=== PATIENT | male | born 1940 | race Caucasian/White ===

== ENCOUNTER 2020-12-14 06:04 | Emergency (ER) | payer MEDICARE, OTHER ==
--- NOTE | 2020-12-14 06:50 | EDM.PDOC ---
ED HPI GENERAL MEDICAL PROBLEM - General Chief Complaint: Genitourinary Problem Stated Complaint: BLOOD IN URINE Time Seen by Provider: 12/14/20 06:20 Source of Information: Reports: Patient, Family () History Limitations: Reports: No Limitations - History of Present Illness INITIAL COMMENTS - FREE TEXT/NARRATIVE: Mr. Baugh is a very pleasant 80-year-old gentleman who now presents the ED stating that he developed some difficulty urinating with gross hematuria and occasional clots this past 12/12/2020. He has been unable to urinate at all for the past 3 hours. No dysuria. No recent fever. The patient states that he had a similar symptoms in 2013, following an inguinal herniorrhaphy. He was found to have BPH and underwent a TURP that same year. He is not on a BPH medication. Here in the ED this morning, the patient's initial BP is found to be elevated at 166/111, otherwise, he is afebrile, saturating 100% on room air. He appears to be comfortable, in no acute distress. The patient injured his leg 8 days ago, on 12/06/2020. He was seen and prescribed a 5-day course of Keflex, finishing it 3 days ago, , 12/11/2020. Otherwise, prior to Tuesday, the patient denies having a recent fever, chills, sore throat, ear pain, nasal or sinus congestion, cough, dyspnea, chest pain, palpitations, nausea, vomiting, constipation, diarrhea, abdominal pain, urinary symptoms, recent weight gain or weight loss, recent bloody bowel movements or black bowel movements, recent joint aches, headaches, or rashes. The patient and his live in a motor home. The are currently traveling from [facility] to [place]. Their mailing address is in [place], [place].' He has received 2 COVID vaccinations. Lower Abdomen Pain Score (Numeric/FACES): 8 - Related Data Allergies Allergy/AdvReac Type Severity Reaction Status Date / Time Sulfa (Sulfonamide Allergy Other Verified 12/14/20 06:25 Antibiotics) Home Meds: Home Meds Rosuvastatin [Crestor] 20 mg PO BEDTIME 12/14/20 [History] Past Medical History Cardiovascular History: Reports: High Cholesterol Genitourinary History: Reports: BPH Oncologic (Cancer) History: Reports: Basal Cell Carcinoma, Squamous Cell Carcinoma - Past Surgical History GI Surgical History: Reports: Hernia, Inguinal (2014) Male Surgical History: Reports: TURP-Transurethral Resection of Prostate (2013) Oncologic Surgical History: Reports: Other (See Below) (SCC excised from chin, right hand) Social & Family History - Tobacco Use Tobacco Use Status *Q: Former Tobacco User Years of Tobacco use: 15 Packs/Tins Daily: 2 Month/Year Tobacco Last Used: Quit 1968 Tobacco Use Comment: Started smoking 1953 - Caffeine Use Caffeine Use: Reports: Coffee - Alcohol Use Alcohol Use History: Yes Alcohol Use Frequency: Socially - Recreational Drug Use Recreational Drug Use: No - Living Situation & Occupation Living situation: Reports: , with Spouse Occupation: Retired ED ROS GENERAL - Review of Systems Review Of Systems: Comprehensive ROS is negative, except as noted in HPI. ED EXAM, RENAL/ - Physical Exam Exam: See Below Exam Limited By: No Limitations General Appearance: Alert, WD/WN, No Apparent Distress Eye Exam: Bilateral Eye: EOMI, Normal Inspection Ears: Normal External Exam, Hearing Grossly Normal Nose: Normal Inspection Throat/Mouth: Normal Inspection, Normal Lips, Normal Voice, No Airway Compromise Head: Atraumatic, Normocephalic Neck: Normal Inspection, Full Range of Motion Respiratory/Chest: No Respiratory Distress, Lungs Clear, Normal Breath Sounds, No Accessory Muscle Use Cardiovascular: Normal Peripheral Pulses, Regular Rate, Rhythm, No Edema, No Gallop, No JVD, No Murmur, No Rub GI/Abdominal: Normal Bowel Sounds, Soft, No Organomegaly, No Distention, No Abnormal Bruit, No Mass, Tender (Suprapubically only. Nontender elsewhere.) Back Exam: Normal Inspection, Full Range of Motion, NT Extremities: Normal Inspection, Normal Range of Motion, No Pedal Edema, Normal Capillary Refill Neurological: Alert, Oriented, Normal Cognition, No Motor/Sensory Deficits Psychiatric: Normal Affect Skin Exam: Warm, Dry, Intact, Normal Color, No Rash Course - Vital Signs Last Recorded V/S: Last Vital Signs Temp 36.3 C 12/14/20 06:15 Pulse 94 12/14/20 06:15 Resp 18 12/14/20 06:15 BP 166/111 H 12/14/20 06:15 Pulse Ox 100 12/14/20 06:15 - Orders/Labs/Meds Orders: Active Orders 24 hr Category Date Time Status Bladder Scan [RC] ASDIRECTED Care 12/14/20 06:28 Active Insert Nieves Catheter [Insert Urinary Catheter] [OM.PC] Care 12/14/20 06:30 Ordered Q24H Urinary Catheter Assessment [RC] ASDIRECTED Care 12/14/20 06:29 Active Labs: Laboratory Tests 12/14/20 Range/Units 06:55 Urine Color Red H (Yellow) Urine Appearance Turbid H (Clear) Urine pH 8.5 H (5.0-8.0) Ur Specific [place] 1.010 (1.005-1.030) Urine Protein 3+ H (Negative) Urine Glucose (UA) Trace H (Negative) Urine Ketones 1+ H (Negative) Urine Occult Blood 3+ H (Negative) Urine Nitrite Negative (Negative) Urine Bilirubin 3+ H (Negative) Urine Urobilinogen 4.0 H (0.2-1.0) Ur Leukocyte Esterase 3+ H (Negative) Urine RBC Too numerous to cnt H (0-5) /hpf Urine WBC Not seen (0-5) /hpf Ur Epithelial Cells Not seen (0-5) /hpf Urine Bacteria Few (FEW) /hpf Urine Mucus Not seen (FEW) /hpf - Re-Assessments/Exams Free Text/Narrative Re-Assessment/Exam: 12/14/20 06:42 As the bladder scan at triage found 420 mL of urine, a Nieves catheter will be placed to a leg bag. I have ordered a urinalysis. The patient will be prescribed tamsulosin via [facility] at discharge. 12/14/20 07:21 The patient's urinalysis is remarkable for red/turbid appearance, 3+ occult blood with TNTC RBCs, 3+ leukocyte esterase with no WBCs seen, nitrate negative with few bacteria, and no squamous epithelial cells seen. The patient's urinalysis is not consistent with a UTI. I will discharge the patient home with recommendation that he follow-up with a Urologist at the next available opportunity. As above, he will be prescribed tamsulosin via [facility]. 12/14/20 07:26 The above was explained to the patient and his . Instead of going to [place], they may decide to go to [place] instead. Departure - Departure Time of Disposition: 07:26 Disposition: Home, Self-Care 01 Condition: Good Clinical Impression: Urinary obstruction, Gross hematuria - Discharge Information *PRESCRIPTION DRUG MONITORING PROGRAM REVIEWED*: Not Applicable *COPY OF PRESCRIPTION DRUG MONITORING REPORT IN PATIENT SANDOVAL: Not Applicable Referrals: PCP,Not In Area [Primary Care Provider] - Forms: ED Department Discharge Additional Instructions: You were seen in the emergency room after experiencing difficulty urinating, with visible blood in your urine since Tuesday. Work-up in the ER included a bladder scan and a urinalysis. Your bladder scan revealed 420 mL of urinary retention, therefore a Nieves catheter was placed. Stay adequately hydrated. It does not really matter what type of fluid you drink. Drain the catheter bag as instructed by your nurse. Make sure that the catheter bag is below your body height when you are resting, so that urine does not backflow into your bladder. A prescription for the prostate medicine tamsulosin (Flomax) has been provided to you via [facility]. Take 1 tablet of tamsulosin every morning, starting this morning, 12/14/2020, as prescribed. Follow-up with a Urologist at the next available appointment. Make sure that the entry level receptionist understands that you are following up from the ER, and that you have a Nieves catheter. If any other problems, please do not hesitate to return to the ER. Sepsis Event Note (ED) - Focused Exam Vital Signs: Vital Signs Temp Pulse Resp BP Pulse Ox 12/14/20 06:15 36.3 C 94 18 166/111 H 100 - My Orders Last 24 Hours: My Active Orders 12/14/20 06:28 Bladder Scan [RC] ASDIRECTED 12/14/20 06:29 Urinary Catheter Assessment [RC] ASDIRECTED 12/14/20 06:30 Insert Nieves Catheter [Insert Urinary Catheter] [OM.PC] Q24H - Assessment/Plan Last 24 Hours: My Active Orders 12/14/20 06:28 Bladder Scan [RC] ASDIRECTED 12/14/20 06:29 Urinary Catheter Assessment [RC] ASDIRECTED 12/14/20 06:30 Insert Nieves Catheter [Insert Urinary Catheter] [OM.PC] Q24H
== END 2020-12-14 08:16 | disposition home or self-care (01) ==
LOC: JD.ED 06:04
DX: N40.1 Benign prostatic hyperplasia with lower urinary tract symptoms (principal); N13.8 Other obstructive and reflux uropathy; R31.0 Gross hematuria; E78.00 Pure hypercholesterolemia, unspecified; Z88.2 Allergy status to sulfonamides; Z87.891 Personal history of nicotine dependence
CPT/HCPCS: 51702; 81001; 99284-25